=== PATIENT | male | born 1960 | race Caucasian/White ===

== ENCOUNTER 2017-05-29 03:17 | Emergency (ER) | payer OTHER ==
[~2017-05-29] VITALS: Ht 193 cm; Wt 100.0 kg
[2017-05-29 03:20] VITALS: TEMP 36.4; Ht 193 cm; Wt 100.0 kg
[2017-05-29] MEDS ORDERED: PROPARACAINE HCL 0.5% OP SOLN 15 ML BTL ONE ×2 (04:08→04:12)
[2017-05-29] MEDS ORDERED: FLURBIPROFEN 0.03% ONE (06:06)
[2017-05-29 06:27] VITALS: BP 146/88; PULSE 89; O2SAT 96
--- NOTE | 2017-05-29 08:16 | EMERGENCY ROOM VISIT NOTE ---
History First contact with patient: 04:02 Chief Complaint: EYE ASSESSMENT Stated Complaint: SWOLLEN R EYE, S/P SURG IN FEBRUARY History of Present Illness The patient is a 57 year old white male who presents to the Emergency Room with complaints of right eye pain that began earlier this evening. Patient has a history of cataract surgery in February. He had been doing fairly well with that. He did require removal of 2 sutures by laser, postoperatively. Today he was at work and states he had sudden onset of blurred vision. He states he looked away and looked back at his work, and the vision issue resolved. This afternoon he developed itching in his eye. He has been rubbing his eye or a medically throughout the afternoon and evening. Earlier this evening he developed severe onset of right eye pain. It has persisted. He was unable to sleep. He states there is significant pressure in his eye. He is unsure if there is any foreign body. No change in vision at this time. His son accompanies him today. Pain is 9/10. He notes injection of the eye as well as swelling of the lids. No symptoms in the left eye. Review of Systems REVIEW OF SYSTEM: HEENT: No dizziness, hearing loss, or tinnitus. There is no difficulty swallowing and no oral lesions are present. LYMPH: No adenopathy. PULMONARY: No cough, shortness of breath, sputum production or hemoptysis. CARDIOVASCULAR: No chest pain, palpitations, shortness of breath or peripheral edema. GASTROINTESTINAL: No diarrhea, constipation, nausea, vomiting, or abdominal pain. GENITOURINARY: No dysuria, frequency, urgency or nocturia. NEUROLOGIC: No weakness, muscle tenderness, epilepsy or history of neurological problems. MUSCULOSKELETAL: No history of joint tenderness/swelling. No history of arthritis or arthralgias. SKIN: No rashes or lesions. PSYCHIATRIC: No history of depression or mental illness. ENDOCRINE: No history of diabetes, thyroid disorders, or abnormal hair growth. Past Medical/Surgical History Previous surgeries: Cataract surgery. Medical history: Unremarkable. Family History Noncontributory. Social History Smoking Status: Current Every Day Smoker Smokeless Tobacco Use: No Alcohol Use: occasionally Drug Use: none Housing Status: lives with family Occupation Status: employed Physical Exam Vital Signs Date Time Temp Pulse Resp B/P (MAP) Pulse Ox O2 Delivery O2 Flow Rate FiO2 05/29/17 06:27 89 19 146/88 96 05/29/17 06:01 89 19 146/88 96 Room Air 05/29/17 03:20 36.4 96 18 134/90 95 Room Air Right Eye Acuity: 20/30 Left Eye Acuity: 20/20 Physical Exam Gen.: Well-developed, well-nourished, middle-aged white male, in obvious discomfort. No acute distress. Sitting on a bed. Alert and oriented. Skin: Warm and dry with good turgor. No rashes or lesions. No ecchymosis or erythema. The patient is not diaphoretic. No abrasions. HEENT: Normocephalic atraumatic. Eyes PERRLA, EOMI. Right conjunctiva and scleral injection. Scar present over the lateral cornea from previous surgery. Eye was anesthetized using Alcaine drops and stained using fluorescein. Funduscopic exam and slit lamp exam were both performed. Funduscopic exam is unremarkable. Slit lamp shows 2 retained sutures in the superior and lateral portion of the cornea. Lens looks to be in appropriate position. He does have a corneal uptake of fluorescein in the lateral stitch. It appears to be similar to uptake on a corneal ulcer. It appears the suture is starting to protrude through the cornea. No visible hyphema. Upper lid was everted and no foreign material was noted. Medical Decision & Procedures Medications Administered Medications (Trade) Dose Ordered Sig/Christelle Route Start Time Stop Time Status Last Admin Dose Admin Ofloxacin (Ocuflox 0.3% Oph Soln) 1 drops QID OP 05/29/17 09:00 05/29/17 09:00 DC 05/29/17 06:26 1 DROPS Alcaine drops, ofloxacin solution ED Course Patient was educated regarding today's findings. Conservative care measures were discussed. Eye was anesthetized using Alcaine and stained with fluorescein. Slit lamp exam was performed. I did speak with Dr. Mccray regarding this patient's findings. He did come to the ED to evaluate the patient. Please see his dictation for final management. Patient did have the retained sutures removed. He was prescribed ofloxacin solution to be used one drop in the eye every 6 hours [id number] for the next 5 days. He understands that the eye may be quite sensitive over the next 24-36 hours. Pain should improve at that point. He may be more comfortable and dark rooms or using sunglasses. He did intend to go to the football game today. He was instructed to use sunglasses. Tylenol and Motrin every 6 hours as needed for discomfort. Follow-up with his eye doctor at home in [place] this week. Return to the ED for any acute changes. Medical Decision Possibility of corneal ulcer, corneal abrasion, retained foreign body, hyphema, retinal tear, and dislocation of the lens were considered among others. Medication Reconcilliation Current Medication List: was personally reviewed by me Blood Pressure Screening Blood pressure disposition: Elevated BP felt to be situational Impression Primary Impression: Acute right eye pain Additional Impression: Retained foreign body in eye Departure Information Dispostion Home / Self-Care Referrals No Doctor, Assigned (PCP) Forms WORK / SCHOOL INSTRUCTIONS, HOME CARE DOCUMENTATION FORM, MOTRIN USE, TYLENOL USE, IMPORTANT VISIT INFORMATION Patient Instructions [facility] Additional Instructions Tylenol and Motrin every 6 hours as needed for discomfort Sunglasses may also improve your comfort Ofloxacin solution-1 drop in the right eye every 6 hours 5 days Follow-up with your eye doctor at home as needed Problem Qualifiers Additional Impression: Retained foreign body in eye Laterality: right Qualified Codes: H44.701 - Unspecified retained (old) intraocular foreign body, nonmagnetic, right eye; Z18.9 - Retained foreign body fragments, unspecified material
--- NOTE | 2017-05-29 08:21 | OPHTHALMOLOGY CONSULTATION ---
DATE OF CONSULTATION: 05/29/2017 CONSULTING PHYSICIAN: Krissy Small DO. CHIEF COMPLAINT AND HISTORY OF PRESENT ILLNESS: This is a 57-year-old male who presented to the [facility] Emergency Department for evaluation of right eye irritation for the past day. The patient states that yesterday afternoon he noticed that his right eye became red and irritated and it felt like he had something in the eye. He has a history of complicated cataract surgery in his right eye in February 2017 that was done by an plumber and tinner near his home in [place], [place]. He states that during that surgery, he had to have sutures placed in the cornea and he has had 2 of these sutures removed previously. He does have 2 sutures remaining in the cornea. Although he has redness and discomfort, he does not feel his vision has been affected. He denies any headache. He denies any nausea or vomiting. PAST MEDICAL HISTORY: None. PAST SURGICAL HISTORY: Positive for cataract surgery in the right eye as well as knee surgery. MEDICATIONS: None. ALLERGIES: No known drug allergies. SOCIAL HISTORY: He is and he lives miles from [place]. PHYSICAL EXAMINATION: His visual acuity at near with correction is 20/40 in the right eye and 20/20 in the left eye. His intraocular pressures are normal to palpation in each eye. The right pupil was 4 mm and reacts down to 2 mm. The left pupil is 3 mm and reacts down to 2 mm and there is no efferent pupillary defect. His extraocular movements are full in both eyes. His slit lamp exam for the right eye shows the lids, lashes and lacrimal glands were within normal limits. The conjunctiva and sclerae has 2+ bulbar injection. The cornea shows 2+ SPK scattered over the cornea. There are two 10-0 sutures visible at the corneal limbus, 1 at around the 9 o'clock position and the other around the 11 o'clock position. The 10-0 suture at the 9 o'clock position has an exposed edge on the nasal aspect that stains with sodium chloride staining. The anterior chamber is deep and there is vitreous noted in the anterior chamber, but no active inflammation. The iris is round with no defects and the lens is a PCIOL with open capsule. The left eye, lids, lashes and lacrimal glands are within normal limits. The conjunctiva and sclerae are white and quiet. The cornea is clear. The anterior chamber is deep and quiet. The iris is round and reactive and the lens has 1+ nuclear sclerosis. He does have a positive red reflex in both eyes. ASSESSMENT AND PLAN: 1. Corneal foreign body/exposed suture on the right cornea. After placing a drop of proparacaine, the remaining 10-0 sutures were removed using a 29 gauge insulin syringe and needle as well as tying forceps. The patient tolerated the procedure well without complications. He was given a prescription for ofloxacin drops 4 times a day for 5 days as well as artificial tears every 2 hours while awake for the next several days. He was educated on the signs and symptoms of corneal infections and ulcerations and told to seek care if he develops any worsening vision or pain. 2. Complicated cataract surgery in the right eye with vitreous in the anterior chamber. I explained to him that the vitreous does not seem to be causing any active inflammation currently. We discussed that he is to seek care if he develops any redness decreased vision or pain that could be caused by the remaining vitreous in the anterior chamber. He states that he will likely be making a follow-up appointment with his eye doctor when he returns home. Thank you for this consult. AUNG
[2017-05-29] MEDS ORDERED: OFLOXACIN 0.3% OP SOLN 5 ML BTL OP SCH (09:00)
== END 2017-05-29 06:29 | disposition home or self-care (01) ==
LOC: C.EDB 03:18 → C.EDC 06:29
DX: H57.11 Ocular pain, right eye (principal); H02.813 Retained foreign body in right eye, unspecified eyelid; F17.200 Nicotine dependence, unspecified, uncomplicated